=== PATIENT | female | born 1940 | race Caucasian/White ===

== ENCOUNTER 2020-02-17 13:15 | Inpatient (IN) | payer MEDICARE ==
[~2020-02-17] VITALS: Ht 152.4 cm; Wt 51.8 kg
[2020-02-17 17:00] VITALS: BP 144/65
[2020-02-17] MEDS ORDERED: ACETAMINOPHEN 650 MG/20.3 ML SOLUTION UDCUP PO PRN (18:00)
[2020-02-17] MEDS ORDERED: ACETAMINOPHEN 325 MG TABLET PO PRN (18:00)
[2020-02-17] MEDS: HEPARIN SODIUM,PORCINE 5,000 UNITS/ML VIAL SQ SCH (21:00)
[2020-02-17] MEDS: SENNA 187 MG TABLET PO SCH (21:30)
[2020-02-17] MEDS: ATORVASTATIN CALCIUM 20 MG TABLET PO SCH (21:30)
[2020-02-17] MEDS: DOCUSATE SODIUM 100 MG CAPSULE PO SCH (21:31)
[2020-02-17] MEDS: MELATONIN 5 MG TABLET PO PRN (21:33)
[2020-02-18 03:25] VITALS: BP 134/60
[2020-02-18] MEDS: ALENDRONATE SODIUM 70 MG TABLET PO SCH (06:04)
[2020-02-18 06:29] LABS: BASOPHILS % (AUTO) 0.8 % (0.0-2.0); EOSINOPHILS % (AUTO) 2.4 % (1.0-6.0); HEMATOCRIT 34.8 % (36-46); HEMOGLOBIN 11.8 g/dL (12.0-16.0); LYMPHOCYTES # (AUTO) 1.7 K/uL (1.0-4.8); LYMPHOCYTES % (AUTO) 27.8 % (22.0-44.0); MEAN CORPUSCULAR HEMOGLOBIN 29.9 pg (26.0-34.0); MEAN CORPUSCULAR HGB CONC 33.9 G/dL (31.0-37.0); MEAN CORPUSCULAR VOLUME 88 fL (80-100); MONOCYTES # (AUTO) 0.8 K/uL (0.1-1.0); MONOCYTES % (AUTO) 12.4 % (2.0-9.0); NEUTROPHILS # (AUTO) 3.4 K/uL (1.8-7.7); NEUTROPHILS % (AUTO) 56.6 % (40.0-70.0); PLATELET COUNT (AUTO) 212 K/uL (150-450); RED BLOOD CELL COUNT(AUTO) 3.93 MIL/uL (4.00-5.20); RED CELL DISTRIBUTION WIDTH 12.9 % (11.5-14.5)
[2020-02-18 06:52] LABS: ALBUMIN 3.1 g/dL (3.4-5.0); BILIRUBIN,TOTAL 0.6 mg/dL (0.1-1.0); CALCIUM, TOTAL 8.4 mg/dL (8.8-10.5); CREATININE 1.54 mg/dL (0.60-1.30); POTASSIUM 4.6 mmol/L (3.5-5.1); TOTAL PROTEIN, SERUM 6.5 g/dL (6.4-8.2)
[2020-02-18] MEDS: FLUoxetine HCL 20 MG CAPSULE PO SCH (08:21)
[2020-02-18] MEDS: ASPIRIN 81 MG CHEWABLE TABLET PO SCH (08:21)
[2020-02-18] MEDS: HEPARIN SODIUM,PORCINE 5,000 UNITS/ML VIAL SQ SCH ×3 (08:21→19:42)
[2020-02-18] MEDS: DOCUSATE SODIUM 100 MG CAPSULE PO SCH ×2 (08:21→19:39)
[2020-02-18] MEDS: LOSARTAN POTASSIUM 50 MG TABLET PO SCH (08:21)
[2020-02-18] MEDS: ATENOLOL 25 MG TABLET PO SCH (09:00)
[2020-02-18 09:12] VITALS: BP 129/65
[2020-02-18 15:21] VITALS: BP 136/63
[2020-02-18] MEDS: AmLODIPine BESYLATE 5 MG TABLET PO SCH (15:24)
[2020-02-18] MEDS: SULFAMETHOX/TRIMETH DS 800-160 MG/TABLET PO SCH ×2 (15:24→19:39)
[2020-02-18] MEDS: FAMOTIDINE 20 MG TABLET PO SCH (19:39)
[2020-02-18] MEDS: MELATONIN 5 MG TABLET PO PRN (19:39)
[2020-02-18] MEDS: ATORVASTATIN CALCIUM 20 MG TABLET PO SCH (19:39)
[2020-02-18] MEDS: SENNA 187 MG TABLET PO SCH (19:41)
[2020-02-19] VITALS (7 sets, daily range): BP systolic 122–156; BP diastolic 52–76
[2020-02-19] MEDS: ASPIRIN 81 MG CHEWABLE TABLET PO SCH (08:15)
[2020-02-19] MEDS: HEPARIN SODIUM,PORCINE 5,000 UNITS/ML VIAL SQ SCH ×3 (08:15→20:05)
[2020-02-19] MEDS: AmLODIPine BESYLATE 5 MG TABLET PO SCH (08:15)
[2020-02-19] MEDS: DOCUSATE SODIUM 100 MG CAPSULE PO SCH ×2 (08:15→20:05)
[2020-02-19] MEDS: SULFAMETHOX/TRIMETH DS 800-160 MG/TABLET PO SCH ×2 (08:15→20:05)
[2020-02-19] MEDS: ATENOLOL 25 MG TABLET PO SCH (08:15)
[2020-02-19] MEDS: FLUoxetine HCL 20 MG CAPSULE PO SCH (08:15)
[2020-02-19] MEDS: FAMOTIDINE 20 MG TABLET PO SCH ×2 (08:16→20:05)
[2020-02-19] MEDS: LOSARTAN POTASSIUM 50 MG TABLET PO SCH (09:38)
[2020-02-19] MEDS: SENNA 187 MG TABLET PO SCH (20:05)
[2020-02-19] MEDS: ATORVASTATIN CALCIUM 20 MG TABLET PO SCH (20:05)
[2020-02-19] MEDS: MELATONIN 5 MG TABLET PO PRN (23:03)
[2020-02-20] MEDS: AmLODIPine BESYLATE 5 MG TABLET PO SCH (08:13)
[2020-02-20] MEDS: ATENOLOL 25 MG TABLET PO SCH (08:13)
[2020-02-20] MEDS: LOSARTAN POTASSIUM 50 MG TABLET PO SCH (08:13)
[2020-02-20] MEDS: FLUoxetine HCL 20 MG CAPSULE PO SCH (08:13)
[2020-02-20] MEDS: ASPIRIN 81 MG CHEWABLE TABLET PO SCH (08:14)
[2020-02-20] MEDS: HEPARIN SODIUM,PORCINE 5,000 UNITS/ML VIAL SQ SCH ×3 (08:14→20:45)
[2020-02-20] MEDS: FAMOTIDINE 20 MG TABLET PO SCH ×2 (08:14→20:45)
[2020-02-20] MEDS: DOCUSATE SODIUM 100 MG CAPSULE PO SCH ×2 (08:14→20:45)
[2020-02-20 09:19] VITALS: BP 137/61
[2020-02-20] MEDS: SULFAMETHOX/TRIMETH DS 800-160 MG/TABLET PO SCH ×2 (11:28→20:45)
[2020-02-20 14:49] LABS: APPEARANCE,URINE CLEAR (CLEAR); BILIRUBIN,URINE NEGATIVE (NEGATIVE); GLUCOSE, URINE (UA) NEGATIVE (NEGATIVE); KETONES,URINE NEGATIVE (NEGATIVE); LEUKOCYTE ESTERASE ,URINE NEGATIVE (NEGATIVE); NITRATE,URINE NEGATIVE (NEGATIVE); OCCULT BLOOD,URINE NEGATIVE (NEGATIVE); PROTEIN,URINE NEGATIVE (NEGATIVE); UROBILINOGEN,URINE 0.2 mg/dL (<=1.0)
[2020-02-20 16:38] VITALS: BP 128/51
[2020-02-20] MEDS: ATORVASTATIN CALCIUM 20 MG TABLET PO SCH (20:45)
[2020-02-20] MEDS: SENNA 187 MG TABLET PO SCH (20:45)
[2020-02-20] MEDS: MELATONIN 5 MG TABLET PO PRN (20:46)
[2020-02-21 00:07] VITALS: BP 135/64
[2020-02-21] MEDS: FLUoxetine HCL 20 MG CAPSULE PO SCH (08:35)
[2020-02-21] MEDS: ATENOLOL 25 MG TABLET PO SCH (08:35)
[2020-02-21] MEDS: DOCUSATE SODIUM 100 MG CAPSULE PO SCH ×2 (08:35→20:13)
[2020-02-21] MEDS: LOSARTAN POTASSIUM 50 MG TABLET PO SCH (08:35)
[2020-02-21] MEDS: FAMOTIDINE 20 MG TABLET PO SCH ×2 (08:36→20:13)
[2020-02-21] MEDS: HEPARIN SODIUM,PORCINE 5,000 UNITS/ML VIAL SQ SCH ×3 (08:36→20:14)
[2020-02-21] MEDS: SULFAMETHOX/TRIMETH DS 800-160 MG/TABLET PO SCH (08:36)
[2020-02-21] MEDS: AmLODIPine BESYLATE 5 MG TABLET PO SCH (08:36)
[2020-02-21] MEDS: ASPIRIN 81 MG CHEWABLE TABLET PO SCH (08:36)
[2020-02-21 09:01] VITALS: BP 137/66
[2020-02-21 17:09] VITALS: BP 129/58
[2020-02-21] MEDS: SENNA 187 MG TABLET PO SCH (20:13)
[2020-02-21] MEDS: MELATONIN 5 MG TABLET PO PRN (20:13)
[2020-02-21] MEDS: ATORVASTATIN CALCIUM 20 MG TABLET PO SCH (20:13)
[2020-02-22 00:23] VITALS: BP 144/57
[2020-02-22 09:30] VITALS: BP 140/58
[2020-02-22] MEDS: LOSARTAN POTASSIUM 50 MG TABLET PO SCH (09:43)
[2020-02-22] MEDS: FAMOTIDINE 20 MG TABLET PO SCH ×2 (09:43→20:50)
[2020-02-22] MEDS: FLUoxetine HCL 20 MG CAPSULE PO SCH (09:43)
[2020-02-22] MEDS: DOCUSATE SODIUM 100 MG CAPSULE PO SCH ×2 (09:43→20:50)
[2020-02-22] MEDS: ASPIRIN 81 MG CHEWABLE TABLET PO SCH (09:43)
[2020-02-22] MEDS: ATENOLOL 25 MG TABLET PO SCH (09:43)
[2020-02-22] MEDS: AmLODIPine BESYLATE 5 MG TABLET PO SCH (09:43)
[2020-02-22] MEDS: HEPARIN SODIUM,PORCINE 5,000 UNITS/ML VIAL SQ SCH ×3 (09:43→20:50)
[2020-02-22 17:54] VITALS: BP 133/84
[2020-02-22] MEDS: SENNA 187 MG TABLET PO SCH (20:50)
[2020-02-22] MEDS: MELATONIN 5 MG TABLET PO PRN (20:50)
[2020-02-22] MEDS: ATORVASTATIN CALCIUM 20 MG TABLET PO SCH (20:50)
[2020-02-23 00:57] VITALS: BP 98/54
[2020-02-23 09:55] VITALS: BP 156/73
[2020-02-23] MEDS: FLUoxetine HCL 20 MG CAPSULE PO SCH (10:00)
[2020-02-23] MEDS: HEPARIN SODIUM,PORCINE 5,000 UNITS/ML VIAL SQ SCH ×3 (10:00→20:14)
[2020-02-23] MEDS: FAMOTIDINE 20 MG TABLET PO SCH ×2 (10:00→20:12)
[2020-02-23] MEDS: DOCUSATE SODIUM 100 MG CAPSULE PO SCH ×2 (10:00→20:13)
[2020-02-23] MEDS: ASPIRIN 81 MG CHEWABLE TABLET PO SCH (10:00)
[2020-02-23] MEDS: ATENOLOL 25 MG TABLET PO SCH (10:00)
[2020-02-23] MEDS: AmLODIPine BESYLATE 5 MG TABLET PO SCH (10:00)
[2020-02-23] MEDS: LOSARTAN POTASSIUM 50 MG TABLET PO SCH (10:00)
[2020-02-23 16:00] VITALS: BP 144/61
[2020-02-23] MEDS: MELATONIN 5 MG TABLET PO PRN (20:13)
[2020-02-23] MEDS: SENNA 187 MG TABLET PO SCH (20:13)
[2020-02-23] MEDS: ATORVASTATIN CALCIUM 20 MG TABLET PO SCH (20:13)
[2020-02-23 23:02] VITALS: BP 144/61
[2020-02-24 06:46] LABS: CALCIUM, TOTAL 8.5 mg/dL (8.8-10.5); CREATININE 1.81 mg/dL (0.60-1.30); POTASSIUM 4.5 mmol/L (3.5-5.1)
[2020-02-24] MEDS: DOCUSATE SODIUM 100 MG CAPSULE PO SCH ×2 (09:00→20:07)
[2020-02-24 09:01] VITALS: BP 122/60
[2020-02-24] MEDS: ASPIRIN 81 MG CHEWABLE TABLET PO SCH (09:25)
[2020-02-24] MEDS: FAMOTIDINE 20 MG TABLET PO SCH ×2 (09:26→20:07)
[2020-02-24] MEDS: ATENOLOL 25 MG TABLET PO SCH (09:26)
[2020-02-24] MEDS: AmLODIPine BESYLATE 5 MG TABLET PO SCH (09:26)
[2020-02-24] MEDS: HEPARIN SODIUM,PORCINE 5,000 UNITS/ML VIAL SQ SCH ×3 (09:26→20:07)
[2020-02-24] MEDS: FLUoxetine HCL 20 MG CAPSULE PO SCH (09:26)
[2020-02-24] MEDS: LOSARTAN POTASSIUM 50 MG TABLET PO SCH (09:26)
[2020-02-24] MEDS: SODIUM CHLORIDE 0.9% 1,000 ML IV SCH (12:35)
[2020-02-24 16:11] VITALS: BP 129/56
[2020-02-24] MEDS: MELATONIN 5 MG TABLET PO PRN (20:07)
[2020-02-24] MEDS: ATORVASTATIN CALCIUM 20 MG TABLET PO SCH (20:07)
[2020-02-24] MEDS: SENNA 187 MG TABLET PO SCH (20:07)
[2020-02-24 23:52] VITALS: BP 129/50
[2020-02-25] MEDS: SODIUM CHLORIDE 0.9% 1,000 ML IV SCH ×2 (01:46→09:14)
[2020-02-25] MEDS: ALENDRONATE SODIUM 70 MG TABLET PO SCH (06:07)
[2020-02-25 07:22] LABS: CALCIUM, TOTAL 7.8 mg/dL (8.8-10.5); CREATININE 1.4 mg/dL (0.60-1.30); POTASSIUM 4.4 mmol/L (3.5-5.1)
[2020-02-25] MEDS: DOCUSATE SODIUM 100 MG CAPSULE PO SCH (09:00)
[2020-02-25 09:01] VITALS: BP 113/57
[2020-02-25] MEDS: ASPIRIN 81 MG CHEWABLE TABLET PO SCH (09:04)
[2020-02-25] MEDS: ATENOLOL 25 MG TABLET PO SCH (09:13)
[2020-02-25] MEDS: FLUoxetine HCL 20 MG CAPSULE PO SCH (09:13)
[2020-02-25] MEDS: AmLODIPine BESYLATE 5 MG TABLET PO SCH (09:13)
[2020-02-25] MEDS: LOSARTAN POTASSIUM 50 MG TABLET PO SCH (09:13)
[2020-02-25] MEDS: HEPARIN SODIUM,PORCINE 5,000 UNITS/ML VIAL SQ SCH ×4 (09:13→21:19)
[2020-02-25] MEDS: FAMOTIDINE 20 MG TABLET PO SCH ×2 (09:13→21:18)
[2020-02-25] MEDS ORDERED: SENNA 187 MG TABLET PO PRN (11:00)
[2020-02-25] MEDS ORDERED: DOCUSATE SODIUM 100 MG CAPSULE PO PRN (11:00)
[2020-02-25] MEDS: CALCIUM CIT/VITAMIN D3 200 MG-250 UNITS TABLET PO SCH ×2 (15:44→21:18)
[2020-02-25 16:05] VITALS: BP 141/65
[2020-02-25] MEDS: ATORVASTATIN CALCIUM 20 MG TABLET PO SCH (21:18)
[2020-02-25] MEDS: MELATONIN 5 MG TABLET PO PRN (21:19)
[2020-02-26] VITALS: BP 132/66
[2020-02-26] MEDS: AmLODIPine BESYLATE 5 MG TABLET PO SCH (08:04)
[2020-02-26] MEDS: CALCIUM CIT/VITAMIN D3 200 MG-250 UNITS TABLET PO SCH ×3 (08:04→19:34)
[2020-02-26] MEDS: HEPARIN SODIUM,PORCINE 5,000 UNITS/ML VIAL SQ SCH ×3 (08:04→19:35)
[2020-02-26] MEDS: ASPIRIN 81 MG CHEWABLE TABLET PO SCH (08:04)
[2020-02-26] MEDS: FAMOTIDINE 20 MG TABLET PO SCH ×2 (08:04→19:34)
[2020-02-26] MEDS: FLUoxetine HCL 20 MG CAPSULE PO SCH (08:04)
[2020-02-26] MEDS: LOSARTAN POTASSIUM 50 MG TABLET PO SCH (08:04)
[2020-02-26 09:01] VITALS: BP 146/66
[2020-02-26] MEDS: ATENOLOL 25 MG TABLET PO SCH (09:45)
[2020-02-26 16:15] VITALS: BP 126/58
[2020-02-26] MEDS: ATORVASTATIN CALCIUM 20 MG TABLET PO SCH (19:34)
[2020-02-26] MEDS: MELATONIN 5 MG TABLET PO PRN (20:20)
[2020-02-27] VITALS: BP 132/57
[2020-02-27] MEDS ORDERED: ALEN70TA65 PO (00:20)
[2020-02-27] MEDS ORDERED: AMLO-257 PO (00:35)
[2020-02-27] MEDS ORDERED: CALC-1196 PO (00:35)
[2020-02-27] MEDS ORDERED: FAMO20 PO (00:35)
[2020-02-27] MEDS ORDERED: ATEN-73 PO (00:35)
[2020-02-27] MEDS ORDERED: ASPI-728 PO (00:35)
[2020-02-27] MEDS ORDERED: ATOR20TA86 PO (00:35)
[2020-02-27] MEDS ORDERED: DOCU-275 PO (00:35)
[2020-02-27] MEDS ORDERED: FLUO-191 PO (00:35)
[2020-02-27] MEDS ORDERED: LOSA50TA37 PO (00:35)
[2020-02-27 08:45] VITALS: BP 133/56
[2020-02-27] MEDS: HEPARIN SODIUM,PORCINE 5,000 UNITS/ML VIAL SQ SCH ×3 (08:46→20:01)
[2020-02-27] MEDS: CALCIUM CIT/VITAMIN D3 200 MG-250 UNITS TABLET PO SCH ×3 (08:47→20:01)
[2020-02-27] MEDS: FAMOTIDINE 20 MG TABLET PO SCH ×2 (08:47→20:01)
[2020-02-27] MEDS: AmLODIPine BESYLATE 5 MG TABLET PO SCH (08:47)
[2020-02-27] MEDS: FLUoxetine HCL 20 MG CAPSULE PO SCH (08:47)
[2020-02-27] MEDS: ASPIRIN 81 MG CHEWABLE TABLET PO SCH (08:47)
[2020-02-27] MEDS: LOSARTAN POTASSIUM 50 MG TABLET PO SCH (10:15)
[2020-02-27] MEDS: ATENOLOL 25 MG TABLET PO SCH (10:15)
[2020-02-27 16:51] VITALS: BP 144/60
[2020-02-27] MEDS: ATORVASTATIN CALCIUM 20 MG TABLET PO SCH (20:01)
[2020-02-27] MEDS: MELATONIN 5 MG TABLET PO PRN (20:01)
[2020-02-28 00:46] VITALS: BP 141/61
[2020-02-28 08:45] VITALS: BP 142/62
[2020-02-28] MEDS: FLUoxetine HCL 20 MG CAPSULE PO SCH (08:46)
[2020-02-28] MEDS: AmLODIPine BESYLATE 5 MG TABLET PO SCH (08:46)
[2020-02-28] MEDS: FAMOTIDINE 20 MG TABLET PO SCH (08:46)
[2020-02-28] MEDS: CALCIUM CIT/VITAMIN D3 200 MG-250 UNITS TABLET PO SCH ×2 (08:46→15:25)
[2020-02-28] MEDS: ASPIRIN 81 MG CHEWABLE TABLET PO SCH (08:46)
[2020-02-28] MEDS: HEPARIN SODIUM,PORCINE 5,000 UNITS/ML VIAL SQ SCH ×2 (08:47→15:26)
[2020-02-28] MEDS: ATENOLOL 25 MG TABLET PO SCH (09:00)
[2020-02-28] MEDS: LOSARTAN POTASSIUM 50 MG TABLET PO SCH (09:00)
== END 2020-02-28 18:15 | disposition home health service (06) | DRG 56 ==
LOC: 2WR 16:00
PROVIDERS: ADMIT Physical Medicine & Rehabilitation; ATTEND Physical Medicine & Rehabilitation
DX: I69.354 Hemiplegia and hemiparesis following cerebral infarction affecting left non-dominant side (principal); I63.9 Cerebral infarction, unspecified; E44.0 Moderate protein-calorie malnutrition; N39.0 Urinary tract infection, site not specified; R29.700 NIHSS score 0; R49.0 Dysphonia; M81.0 Age-related osteoporosis without current pathological fracture; E78.5 Hyperlipidemia, unspecified; D63.8 Anemia in other chronic diseases classified elsewhere; E83.51 Hypocalcemia; N18.9 Chronic kidney disease, unspecified; I12.9 Hypertensive chronic kidney disease with stage 1 through stage 4 chronic kidney disease, or unspecified chronic kidney disease; F03.90 Unspecified dementia, unspecified severity, without behavioral disturbance, psychotic disturbance, mood disturbance, and anxiety; Z96.649 Presence of unspecified artificial hip joint; Z68.22 Body mass index [BMI] 22.0-22.9, adult; I65.23 Occlusion and stenosis of bilateral carotid arteries
CPT/HCPCS: 87081; 92507; 92523; 93970; 97110; 97112; 97116; 97163; 97166; 97530; 97535; 99366; 99368; J1644; J7030